=== PATIENT | female | born 1945 | race Caucasian/White ===

== ENCOUNTER 2016-08-30 07:43 | Outpatient (CLI) | payer BC, OTHER ==
[~2016-08-30 07:43] MED LIST: ASPI-605 PO; METO50TA7 PO; VALS160T2 PO
[2016-08-30 09:42] LABS: BASOPHILS % (AUTO) 0.5 % (0.0-2.0); EOSINOPHILS # (AUTO) 0.2 K/uL (0.0-0.7); EOSINOPHILS % (AUTO) 2.1 % (0.0-7.0); HEMATOCRIT 42.3 % (31.2-41.9); HEMOGLOBIN 14.1 g/dL (10.9-14.3); LYMPHOCYTES # (AUTO) 2.8 K/uL (20.0-40.0); LYMPHOCYTES % (AUTO) 34.6 % (20.5-51.5); MEAN CORPUSCULAR HEMOGLOBIN 27.5 uug (24.7-32.8); MEAN CORPUSCULAR HGB CONC 33 g/dL (32.3-35.6); MEAN CORPUSCULAR VOLUME 82.3 fL (75.5-95.3); MONOCYTES # (AUTO) 0.6 K/uL (2.0-10.0); MONOCYTES % (AUTO) 6.9 % (0.0-11.0); NEUTROPHILS # (AUTO) 4.6 K/uL (1.8-8.9); NEUTROPHILS % (AUTO) 55.9 % (38.5-71.5); PLATELET COUNT (AUTO) 194 K/uL (179-408); RED BLOOD CELL COUNT(AUTO) 5.15 MIL/uL (3.63-4.92); WHITE BLOOD COUNT (AUTO) 8.2 K/uL (3.8-11.8)
[2016-08-30 10:04] LABS: BILIRUBIN,TOTAL 0.4 mg/dL (0.2-1.0); CALCIUM 8.8 mg/dL (8.5-10.1); CREATININE 0.6 mg/dL (0.6-1.3); POTASSIUM 4.1 mmol/L (3.5-5.1); TOTAL PROTEIN, SERUM 7.3 g/dL (6.4-8.2)
== END 2016-08-30 23:59 | disposition home or self-care (01) ==
LOC: LAB 07:43
PROVIDERS: ATTEND Internal Medicine Cardiovascular Disease
DX: I10 Essential (primary) hypertension (principal); E11.9 Type 2 diabetes mellitus without complications; E78.5 Hyperlipidemia, unspecified
CPT/HCPCS: 36415; 85025

== ENCOUNTER 2016-09-22 09:16 | Outpatient (CLI) | payer BC, OTHER | END 2016-09-22 23:59 | disposition home or self-care (01) | LOC: US 09:16 | PROVIDERS: ATTEND Internal Medicine Cardiovascular Disease | DX: I70.0 Atherosclerosis of aorta (principal); R06.02 Shortness of breath; R10.11 Right upper quadrant pain | CPT/HCPCS: 71020; 76705 ==

== ENCOUNTER 2017-02-26 07:45 | Outpatient (CLI) | payer BC, OTHER ==
[2017-02-26 09:50] LABS: BILIRUBIN,TOTAL 0.4 mg/dL (0.2-1.0); CREATININE 0.6 mg/dL (0.6-1.3); POTASSIUM 4.1 mmol/L (3.5-5.1); TOTAL PROTEIN, SERUM 7.2 g/dL (6.4-8.2)
[2017-02-26 09:58] LABS: THYROID STIMULATING HORMONE 1.81 mIU/mL (0.358-3.740)
[2017-02-26 10:26] LABS: BASOPHILS # (AUTO) 0.1 K/uL (0.0-8.0); BASOPHILS % (AUTO) 0.7 % (0.0-2.0); EOSINOPHILS # (AUTO) 0.2 K/uL (0.0-0.7); EOSINOPHILS % (AUTO) 2.7 % (0.0-7.0); HEMATOCRIT 41.2 % (37-47); HEMOGLOBIN 13.8 G/DL (12.0-16.0); LYMPHOCYTES % (AUTO) 36.2 % (20.5-51.5); MEAN CORPUSCULAR HGB CONC 34 g/dL (32.0-37.0); MEAN CORPUSCULAR VOLUME 83.8 FL (81.0-99.0); MONOCYTES # (AUTO) 0.7 K/UL (0.1-1.30); MONOCYTES % (AUTO) 7.8 % (0.0-11.0); NEUTROPHILS # (AUTO) 4.4 K/UL (1.8-8.9); NEUTROPHILS % (AUTO) 52.6 % (38.5-71.5); PLATELET COUNT (AUTO) 200 K/UL (150-450); RED BLOOD CELL COUNT(AUTO) 4.92 MIL/UL (4.2-5.4); WHITE BLOOD COUNT (AUTO) 8.4 K/UL (4.0-11.2)
== END 2017-02-26 23:59 | disposition home or self-care (01) ==
LOC: LAB 07:45
PROVIDERS: ATTEND Internal Medicine Cardiovascular Disease
DX: I10 Essential (primary) hypertension (principal); E78.5 Hyperlipidemia, unspecified; R53.83 Other fatigue; E11.40 Type 2 diabetes mellitus with diabetic neuropathy, unspecified
CPT/HCPCS: 36415; 82306; 84443; 85025

== ENCOUNTER 2017-08-23 08:02 | Outpatient (CLI) | payer BC, OTHER ==
[2017-08-23 09:37] LABS: BASOPHILS # (AUTO) 0.1 K/uL (0.0-8.0); BASOPHILS % (AUTO) 0.8 % (0.0-2.0); EOSINOPHILS # (AUTO) 0.2 K/uL (0.0-0.7); HEMATOCRIT 42.3 % (31.2-41.9); HEMOGLOBIN 14.4 g/dL (10.9-14.3); LYMPHOCYTES # (AUTO) 2.9 K/uL (20.0-40.0); LYMPHOCYTES % (AUTO) 34.3 % (20.5-51.5); MEAN CORPUSCULAR HEMOGLOBIN 28.3 uug (24.7-32.8); MEAN CORPUSCULAR HGB CONC 34 g/dL (32.3-35.6); MEAN CORPUSCULAR VOLUME 83.3 fL (75.5-95.3); MONOCYTES # (AUTO) 0.7 K/uL (2.0-10.0); MONOCYTES % (AUTO) 7.8 % (0.0-11.0); NEUTROPHILS # (AUTO) 4.7 K/uL (1.8-8.9); NEUTROPHILS % (AUTO) 55.1 % (38.5-71.5); PLATELET COUNT (AUTO) 176 K/uL (179-408); RED BLOOD CELL COUNT(AUTO) 5.08 MIL/uL (3.63-4.92); WHITE BLOOD COUNT (AUTO) 8.4 K/uL (3.8-11.8)
[2017-08-23 09:47] LABS: *BILIRUBIN,URIN NEGATIVE (NEGATIVE); *BLOOD, URINE Trace-lysed (NEGATIVE); *CLARITY,URINE CLEAR (CLEAR); *COLOR,URINE YELLOW (YELLOW); *KETONES,URINE NEGATIVE (NEGATIVE); *PROTEIN,URINE NEGATIVE (NEGATIVE); *UROBILINOGEN,URINE 0.2 E.U./dl (NORMAL); LEUKOCYTE ESTERASE ,URINE NEGATIVE (NEGATIVE); NITRITE, URINE NEGATIVE (NEGATIVE); PH,URINE 5.5 (5.0-8.0); UGLUCOSE NEGATIVE (NEGATIVE)
[2017-08-23 09:58] LABS: WBC,URINE 0-3 /HPF (0-3)
[2017-08-23 09:59] LABS: BACTERIA,URINE NONE SEEN /HPF (NONE SEEN); SQUAMOUS EPITHELIAL CELL,UR FEW /HPF (NONE SEEN)
[2017-08-23 10:06] LABS: BILIRUBIN,TOTAL 0.3 mg/dL (0.2-1.0); CREATININE 0.6 mg/dL (0.6-1.3); TOTAL PROTEIN, SERUM 7.4 g/dL (6.4-8.2)
[2017-08-23 10:27] LABS: THYROID STIMULATING HORMONE 2.366 mIU/mL (0.358-3.740)
== END 2017-08-23 23:59 | disposition home or self-care (01) ==
LOC: LAB 08:02
PROVIDERS: ATTEND Internal Medicine Cardiovascular Disease
DX: E11.9 Type 2 diabetes mellitus without complications (principal); E78.5 Hyperlipidemia, unspecified; R53.83 Other fatigue
CPT/HCPCS: 36415; 84443; 85025; 87086

== ENCOUNTER 2017-11-27 08:00 | Outpatient (CLI) | payer BC, OTHER ==
[2017-11-27 09:32] LABS: CREATININE 0.7 mg/dL (0.6-1.3)
== END 2017-11-27 23:59 | disposition home or self-care (01) ==
LOC: LAB 08:00
PROVIDERS: ATTEND Internal Medicine Cardiovascular Disease
DX: I10 Essential (primary) hypertension (principal); E11.9 Type 2 diabetes mellitus without complications; E78.5 Hyperlipidemia, unspecified
CPT/HCPCS: 36415

== ENCOUNTER → 2017-11-29 | Outpatient (CLI) | payer BC, OTHER ==
[~2017-11-29] MED LIST changes: +IOHEXOL 300MG/ML 100 ML INFUS..BTL ONE; +IV NORMAL SALINE 100 ML ONE; +SWABABLE VALVE TRANSFER SET EA MC ONE
== END | disposition home or self-care (01) ==
LOC: RAD 08:03
PROVIDERS: ATTEND Internal Medicine Cardiovascular Disease
DX: K76.0 Fatty (change of) liver, not elsewhere classified (principal); I70.0 Atherosclerosis of aorta; I25.10 Atherosclerotic heart disease of native coronary artery without angina pectoris
CPT/HCPCS: J3490; Q9967

== ENCOUNTER 2018-05-27 07:43 | Outpatient (CLI) | payer BC, OTHER ==
[~2018-05-27 07:43] MED LIST changes: -IOHEXOL 300MG/ML 100 ML INFUS..BTL ONE; -IV NORMAL SALINE 100 ML ONE; -SWABABLE VALVE TRANSFER SET EA MC ONE
[2018-05-27 09:10] LABS: BILIRUBIN,TOTAL 0.4 mg/dL (0.2-1.0); CREATININE 0.6 mg/dL (0.6-1.3); POTASSIUM 4.3 mmol/L (3.5-5.1); TOTAL PROTEIN, SERUM 7.1 g/dL (6.4-8.2)
[2018-05-27 09:34] LABS: THYROID STIMULATING HORMONE 2.04 mIU/mL (0.358-3.740)
[2018-05-27 09:47] LABS: BASOPHILS # (AUTO) 0.1 K/uL (0.0-8.0); BASOPHILS % (AUTO) 0.8 % (0.0-2.0); EOSINOPHILS # (AUTO) 0.1 K/uL (0.0-0.7); HEMATOCRIT 39.1 % (31.2-41.9); HEMOGLOBIN 13.5 g/dL (10.9-14.3); LYMPHOCYTES # (AUTO) 2.5 K/uL (20.0-40.0); LYMPHOCYTES % (AUTO) 34.2 % (20.5-51.5); MEAN CORPUSCULAR HGB CONC 35 g/dL (32.3-35.6); MEAN CORPUSCULAR VOLUME 84.2 fL (75.5-95.3); MONOCYTES # (AUTO) 0.6 K/uL (2.0-10.0); MONOCYTES % (AUTO) 8.2 % (0.0-11.0); NEUTROPHILS % (AUTO) 54.8 % (38.5-71.5); PLATELET COUNT (AUTO) 190 K/uL (179-408); RED BLOOD CELL COUNT(AUTO) 4.64 MIL/uL (3.63-4.92); WHITE BLOOD COUNT (AUTO) 7.3 K/uL (3.8-11.8)
[2018-05-30 14:06] LABS: *VITAMIN D 25-OH, D2 1.2 ng/mL (.)
== END 2018-05-27 23:59 | disposition home or self-care (01) ==
LOC: LAB 07:43
PROVIDERS: ATTEND Internal Medicine Cardiovascular Disease
DX: I10 Essential (primary) hypertension (principal); E78.5 Hyperlipidemia, unspecified; R53.83 Other fatigue
CPT/HCPCS: 36415; 84443; 85025

== ENCOUNTER 2018-08-17 22:18 | Inpatient (IN) | payer BC, OTHER, MEDICARE ==
[~2018-08-17] VITALS: Ht 157.5 cm; Wt 81.6 kg
--- NOTE | 2018-08-17 22:30 | NUR ---
Patient ambulatd with stable gait. AAOx4. Speech clear, speaks in complete sentences. No neuro deficits. Patient came for c/o palpitations x 2 hours. Respiratory even and unlabored, no cough no sob. No GI/ distress. Patient in bed at lowest position, side rails upx2, call light within reach. Fall precautions implemented per protocol.
[2018-08-17 22:44] LABS: BASOPHILS # (AUTO) 0.1 K/uL (0.0-8.0); EOSINOPHILS # (AUTO) 0.1 K/uL (0.0-0.7); EOSINOPHILS % (AUTO) 1.3 % (0.0-7.0); HEMATOCRIT 40.1 % (31.2-41.9); HEMOGLOBIN 13.4 g/dL (10.9-14.3); LYMPHOCYTES # (AUTO) 3.4 K/uL (20.0-40.0); LYMPHOCYTES % (AUTO) 31.7 % (20.5-51.5); MEAN CORPUSCULAR HEMOGLOBIN 27.4 uug (24.7-32.8); MEAN CORPUSCULAR HGB CONC 33 g/dL (32.3-35.6); MEAN CORPUSCULAR VOLUME 82.3 fL (75.5-95.3); MONOCYTES # (AUTO) 0.8 K/uL (2.0-10.0); MONOCYTES % (AUTO) 7.5 % (0.0-11.0); NEUTROPHILS # (AUTO) 6.2 K/uL (1.8-8.9); NEUTROPHILS % (AUTO) 58.5 % (38.5-71.5); PLATELET COUNT (AUTO) 187 K/uL (179-408); RED BLOOD CELL COUNT(AUTO) 4.87 MIL/uL (3.63-4.92); WHITE BLOOD COUNT (AUTO) 10.6 K/uL (3.8-11.8)
--- NOTE | 2018-08-17 22:48 | NUR ---
Patient had a asystole segment on heart monitor, at 2248. ERMD notified and made aware.
--- NOTE | 2018-08-17 22:58 | NUR ---
AMANDA speaking to Dr. Padron (CARDIOLOGY).
[2018-08-17 23:00] LABS: ALANINE AMINOTRANSFERASE 45 U/L (14-59); ALKALINE PHOSPHATASE 50 U/L (50-136); ASPARTATE AMINOTRANSFERASE 23 U/L (15-37); BILIRUBIN,DIRECT 0.1 mg/dL (0.0-0.2); BILIRUBIN,TOTAL 0.3 mg/dL (0.2-1.0); CARBON DIOXIDE 26 mmol/L (21-32); CHLORIDE 101 mmol/L (98-107); CREATININE 0.6 mg/dL (0.6-1.3); GLUCOSE 210 mg/dL (74-106); POTASSIUM 3.4 mmol/L (3.5-5.1); TOTAL PROTEIN, SERUM 7.2 g/dL (6.4-8.2); UREA NITROGEN, BLOOD 21 mg/dL (7-18)
--- NOTE | 2018-08-17 23:16 | NUR ---
Dr. Askew at bedside.
[2018-08-17] MEDS ORDERED: HEPARIN/D5W DRIP 500 ML IV PRN (23:30)
[2018-08-17 23:51] LABS: THYROID STIMULATING HORMONE 2.558 mIU/mL (0.358-3.740)
[2018-08-17] MEDS ORDERED: HEPARIN/D5W DRIP 500 ML ONE (23:55)
[2018-08-17] MEDS ORDERED: IV NS 1000 ML 1,000 ML IV PRN (23:57)
[2018-08-18] VITALS (12 sets, daily range): BP systolic 98–154; BP diastolic 37–71
[2018-08-18] MEDS ORDERED: HYDROCODONE/APAP 5-325MG TABLET PO PRN
[2018-08-18] MEDS ORDERED: ONDANSETRON 4 MG/2 ML VIAL IV PRN
[2018-08-18] MEDS ORDERED: HEPARIN/D5W DRIP 500 ML IV PRN
[2018-08-18] MEDS ORDERED: MAGNESIUM HYDROXIDE 30 ML LIQUID UDC PO PRN
[2018-08-18] MEDS ORDERED: Z GUARD REMEDY PASTE 57 GM TUBE TOP PRN
[2018-08-18] MEDS ORDERED: ACETAMINOPHEN 325 MG TABLET PO PRN
[2018-08-18] MEDS ORDERED: HEPARIN SODIUM,PORCINE 5,000 UNITS/ML VIAL ONE (00:09)
[2018-08-18] MEDS ORDERED: HEPARIN SODIUM,PORCINE/PF 100 UNIT/ML, 5ML SYR ONE (00:09)
--- NOTE | 2018-08-18 01:47 | NUR ---
patient transfered to CCU in stable condition.
--- NOTE | 2018-08-18 01:48 | NUR ---
ADMITTED FROM ER VIA [facility] W/ ADMITTING DX OF AFIB W/ ASYSTOLE. PT IS ALERT & ORIENTED X3. DENIES CHEST PAIN. ON HEPARIN DRIP @ 1200 UNITS/HR STARTED IN ER . LAC. C-SCOPE AFIB CONTROLLED, BP STABLE. NOT IN ANY DISTRESS.
--- NOTE | 2018-08-18 06:00 | NUR ---
SLEPT WELL. NOT IN ANY DISTRESS..
[2018-08-18 06:12] LABS: BASOPHILS # (AUTO) 0.1 K/uL (0.0-8.0); BASOPHILS % (AUTO) 0.7 % (0.0-2.0); EOSINOPHILS # (AUTO) 0.2 K/uL (0.0-0.7); EOSINOPHILS % (AUTO) 2.1 % (0.0-7.0); HEMATOCRIT 40.2 % (31.2-41.9); HEMOGLOBIN 13.3 g/dL (10.9-14.3); LYMPHOCYTES # (AUTO) 4.5 K/uL (20.0-40.0); LYMPHOCYTES % (AUTO) 44.4 % (20.5-51.5); MEAN CORPUSCULAR HEMOGLOBIN 27.2 uug (24.7-32.8); MEAN CORPUSCULAR HGB CONC 33 g/dL (32.3-35.6); MEAN CORPUSCULAR VOLUME 82.1 fL (75.5-95.3); MONOCYTES # (AUTO) 0.7 K/uL (2.0-10.0); MONOCYTES % (AUTO) 6.6 % (0.0-11.0); NEUTROPHILS # (AUTO) 4.7 K/uL (1.8-8.9); NEUTROPHILS % (AUTO) 46.2 % (38.5-71.5); PLATELET COUNT (AUTO) 202 K/uL (179-408); RED BLOOD CELL COUNT(AUTO) 4.89 MIL/uL (3.63-4.92); WHITE BLOOD COUNT (AUTO) 10.1 K/uL (3.8-11.8)
--- NOTE | 2018-08-18 06:39 | NUR ---
CONVERTED TO SR W/ PACS, EKG DONE.
[2018-08-18 06:52] LABS: ALANINE AMINOTRANSFERASE 42 U/L (14-59); ALKALINE PHOSPHATASE 42 U/L (50-136); ASPARTATE AMINOTRANSFERASE 18 U/L (15-37); BILIRUBIN,TOTAL 0.4 mg/dL (0.2-1.0); CARBON DIOXIDE 25 mmol/L (21-32); CHLORIDE 103 mmol/L (98-107); CHOLESTEROL 203 mg/dL (<200); CREATININE 0.6 mg/dL (0.6-1.3); GLUCOSE 134 mg/dL (74-106); HDL CHOLESTEROL 48 mg/dL (40-60); MAGNESIUM 1.9 mg/dL (1.8-2.4); PHOSPHOROUS 4.1 mg/dL (2.5-4.9); POTASSIUM 3.7 mmol/L (3.5-5.1); TOTAL PROTEIN, SERUM 7.1 g/dL (6.4-8.2); TRIGLYCERIDES 205 MG/DL (30-150); UREA NITROGEN, BLOOD 15 mg/dL (7-18)
--- NOTE | 2018-08-18 08:00 | NUR ---
patient been examine by attending physician Dr. Askew who dcd heparin drip at this time. and down-graded pt. to telemetry status. histology supervisor notified.
[2018-08-18] MEDS ORDERED: METFORMIN HCL 500 MG TABLET PO SCH (08:30)
[2018-08-18] MEDS ORDERED: ATORVASTATIN 40 MG TABLET PO SCH (08:45)
--- NOTE | 2018-08-18 09:00 | NUR ---
Patient seen by Dr. Padron cardiology services.
[2018-08-18] MEDS ORDERED: APIXABAN 5 MG TABLET PO SCH (09:30)
--- NOTE | 2018-08-18 09:45 | NUR ---
Patient taken up to room 325 via wheelchair. PT. AAOX4. vitals stable no c/of pain
--- NOTE | 2018-08-18 09:45 | NUR ---
RECEIVED PATIENT FROM CCU BY W/CHAIR 73 YEARS OLD FEMALE TO ROOM 225 WITH DX OF UNCONTROLLED AFIB.PATIENT IS ALERT AND ORIENTED DENIES PAIN OR DISCOMFORTS ATR THIS TIME ON ROOM AIR WITH NO SHORTNESS OF BREATH AT THIS TIME.LEFT AC WITH HEPLOCK INTACT ORIENTED TO ROOM AND FACILITY PROTOCOL MADE COMFORTABLE WILL CONTINUE TO OBSERVE.
--- NOTE | 2018-08-18 12:21 | NUR ---
ECHO COMPLETED ORDERED WITH PATIENT DENIES PAIN OR DISCOMFORTS AWAITING FOR THE PLANNING ANALYST TO SEE PATIENT
--- NOTE | 2018-08-18 13:30 | NUR ---
CALLED DR SANTIAGO SPOKE WITH HIM RE PATIENT IS ANXIOUS TO GO HOME THE SAILBOAT CAPTAIN WAS HERE AND WILL SEE PATIENT AND HE STATED IT WILL BE OKAY FOR PATIENT TO BE DISCHARGED WILL PLACE AN ORDER FOR DISCHARGE IN A WHILE AND WILL LET MARY JANE CALL IN MEDS TO THE PATIENTS PHARMACY PATIENT AND HER DAUGHTER HERE AND AWARE.
[2018-08-18] MEDS ORDERED: VALSARTAN 160 MG TABLET PO SCH (13:45)
--- NOTE | 2018-08-18 14:20 | NUR ---
PATIENT REFUSED DIOVAN STATED STOPPED TAKING IT A WHILWE AGO.
--- NOTE | 2018-08-18 15:30 | NUR ---
PATIENT DISCHARGED HOME PICKED UP BY HER DAUGHTER NUPUR WITH DISCHARGE INSTRUCTIONS AND PRESCRIPTION PROVIDED BY DR REESE IN SATISFACTORY CONDITION WITH ALL OF HER PERSONAL BELONGINGS AND PATIENT WAS INSTRUCTED TO CONTINUE MEDICATIONS ORDERED AND FOLLOW UP WITH HER PRIMARY/SOFT CRAB SHEDDER WITHIN ONE WEEK AND SHE EXPRESSED UNDERSTANDING.
== END 2018-08-18 15:30 | disposition home or self-care (01) | DRG 309 ==
LOC: ER 22:19 → OBSER 08-18 01:10 → CCU 08-18 01:18 → TELE3 08-18 09:44
PROVIDERS: ADMIT Internal Medicine; ATTEND Internal Medicine
DX: I48.91 Unspecified atrial fibrillation (principal); D68.59 Other primary thrombophilia; E78.5 Hyperlipidemia, unspecified; E11.9 Type 2 diabetes mellitus without complications; I10 Essential (primary) hypertension; I35.0 Nonrheumatic aortic (valve) stenosis; I46.9 Cardiac arrest, cause unspecified; Z79.82 Long term (current) use of aspirin; Z79.899 Other long term (current) drug therapy; Z82.49 Family history of ischemic heart disease and other diseases of the circulatory system; Z87.891 Personal history of nicotine dependence; Z90.710 Acquired absence of both cervix and uterus
CPT/HCPCS: 36415; 70030-TC; 71045; 83735; 84100; 84443; 85025; 85730; 93005; 93307; A4663; G0378; J1642; J1644; J7030; J7060

== ENCOUNTER 2018-09-19 07:35 | Emergency (ER) | payer BC, MEDICARE, OTHER ==
[~2018-09-19] VITALS: Ht 157.5 cm; Wt 74.8 kg
--- NOTE | 2018-09-19 08:08 | NUR ---
PATIENT SLIPPED AND FELL TODAY AND HURT HER ANKLE AND KNEE. DENIES HITTING HER HEAD. XRAYS COMPLETED.
[2018-09-19] MEDS ORDERED: NEOMY/BACITRA/POLYMYXIN B OINT UD PACKET TP ONE ×2 (08:28→08:30)
--- NOTE | 2018-09-19 08:30 | NUR ---
PATIENT HAS TWO SMALL ABRASIONS ON BOTH KNEES. TRIPLE ABX OINTMENT PLACED ND STERILE BANDAID PLACED. DC AND FOLLOW UP INSTRUCTIONS GIVEN AND EXPLAINED TO PATIENT.
== END 2018-09-19 08:38 | disposition home or self-care (01) ==
LOC: ER 07:35
DX: S93.401A Sprain of unspecified ligament of right ankle, initial encounter (principal); E78.5 Hyperlipidemia, unspecified; I48.91 Unspecified atrial fibrillation; Z79.82 Long term (current) use of aspirin; Z79.899 Other long term (current) drug therapy; W01.0XXA Fall on same level from slipping, tripping and stumbling without subsequent striking against object, initial encounter; Y93.89 Activity, other specified; Y92.89 Other specified places as the place of occurrence of the external cause; Y99.8 Other external cause status
CPT/HCPCS: 73610; A4663

== ENCOUNTER 2018-10-22 07:40 | Outpatient (CLI) | payer BC, OTHER ==
[2018-10-22 09:32] LABS: ALANINE AMINOTRANSFERASE 33 U/L (14-59); ALKALINE PHOSPHATASE 35 U/L (50-136); ASPARTATE AMINOTRANSFERASE 27 U/L (15-37); BILIRUBIN,TOTAL 0.5 mg/dL (0.2-1.0); CARBON DIOXIDE 28 mmol/L (21-32); CHLORIDE 104 mmol/L (98-107); CHOLESTEROL 128 mg/dL (<200); CREATININE 0.8 mg/dL (0.6-1.3); GLUCOSE 123 mg/dL (74-106); HDL CHOLESTEROL 46 mg/dL (40-60); POTASSIUM 3.7 mmol/L (3.5-5.1); TOTAL PROTEIN, SERUM 7.5 g/dL (6.4-8.2); TRIGLYCERIDES 116 MG/DL (30-150); UREA NITROGEN, BLOOD 17 mg/dL (7-18)
[2018-10-22 13:43] LABS: *BILIRUBIN,URIN 1+ (NEGATIVE); *BLOOD, URINE TRACE (NEGATIVE); *KETONES,URINE TRACE (NEGATIVE); *UROBILINOGEN,URINE 0.2 E.U./dl (NORMAL); LEUKOCYTE ESTERASE ,URINE 2+ (NEGATIVE); NITRITE, URINE NEGATIVE (NEGATIVE); PH,URINE 5.5 (5.0-8.0); UGLUCOSE NEGATIVE (NEGATIVE)
[2018-10-22 14:41] LABS: *CLARITY,URINE SLIGHTLY CLOUDY (CLEAR); *COLOR,URINE DARK YELLOW (YELLOW)
[2018-10-22 14:42] LABS: BACTERIA,URINE FEW /HPF (NONE SEEN); SQUAMOUS EPITHELIAL CELL,UR MODERATE /HPF (NONE SEEN); WBC,URINE 20-50 /HPF (0-3)
[2018-10-22 14:43] LABS: MUCUS,URINE MODERATE /LPF (0-FEW); URINE AMORPHOUS URATE MODERATE /HPF
== END 2018-10-22 23:59 | disposition home or self-care (01) ==
LOC: LAB 07:40
PROVIDERS: ATTEND Internal Medicine Cardiovascular Disease
DX: E11.9 Type 2 diabetes mellitus without complications (principal); I10 Essential (primary) hypertension; E78.5 Hyperlipidemia, unspecified
CPT/HCPCS: 36415; 87086

== ENCOUNTER 2018-12-15 17:09 | Emergency (ER) | payer BC, OTHER ==
[~2018-12-15] VITALS: Ht 157.5 cm; Wt 74.8 kg
--- NOTE | 2018-12-15 17:26 | NUR ---
Dr. Heredia at the bedside for MSE.
[2018-12-15] MEDS ORDERED: APIX5TAB4 PO (17:27)
[2018-12-15] MEDS ORDERED: LOSA50TA39 PO (17:27)
[2018-12-15] MEDS ORDERED: SIMV20TA6 PO (17:27)
[2018-12-15] MEDS ORDERED: AMLO5TAB9 PO (17:27)
[2018-12-15] MEDS ORDERED: IV NORMAL SALINE 1000 ML BAG IV ONE (17:30)
[2018-12-15] MEDS ORDERED: ONDANSETRON 4 MG/2 ML VIAL IV ONE (17:30)
[2018-12-15] MEDS ORDERED: ONDANSETRON 4 MG/2 ML VIAL ONE (17:33)
[2018-12-15 17:46] LABS: BASOPHILS % (AUTO) 0.2 % (0.0-2.0); EOSINOPHILS # (AUTO) 0.2 K/uL (0.0-0.7); EOSINOPHILS % (AUTO) 1.2 % (0.0-7.0); HEMATOCRIT 40.6 % (31.2-41.9); HEMOGLOBIN 13.5 g/dL (10.9-14.3); LYMPHOCYTES # (AUTO) 0.8 K/uL (20.0-40.0); LYMPHOCYTES % (AUTO) 5.8 % (20.5-51.5); MEAN CORPUSCULAR HEMOGLOBIN 26.7 uug (24.7-32.8); MEAN CORPUSCULAR HGB CONC 33 g/dL (32.3-35.6); MEAN CORPUSCULAR VOLUME 80.3 fL (75.5-95.3); MONOCYTES # (AUTO) 0.5 K/uL (2.0-10.0); MONOCYTES % (AUTO) 3.8 % (0.0-11.0); NEUTROPHILS # (AUTO) 11.6 K/uL (1.8-8.9); PLATELET COUNT (AUTO) 189 K/uL (179-408); RED BLOOD CELL COUNT(AUTO) 5.06 MIL/uL (3.63-4.92)
[2018-12-15 17:49] LABS: CARBON DIOXIDE 23 mmol/L (21-32); CHLORIDE 105 mmol/L (98-107); CREATININE 0.7 mg/dL (0.6-1.3); GLUCOSE 178 mg/dL (74-106); POTASSIUM 3.6 mmol/L (3.5-5.1); UREA NITROGEN, BLOOD 19 mg/dL (7-18)
[2018-12-15 17:56] LABS: ALANINE AMINOTRANSFERASE 28 U/L (14-59); ALKALINE PHOSPHATASE 40 U/L (50-136); ASPARTATE AMINOTRANSFERASE 16 U/L (15-37); BILIRUBIN,DIRECT 0.1 mg/dL (0.0-0.2); BILIRUBIN,TOTAL 0.6 mg/dL (0.2-1.0); LIPASE 82 U/L (73-393); TOTAL PROTEIN, SERUM 7.6 g/dL (6.4-8.2)
--- NOTE | 2018-12-15 18:40 | NUR ---
Patient discharged to home in stable conditon. Written and verbal after care instructions given. Patient verbalizes understanding of instructions.
== END 2018-12-15 18:40 | disposition home or self-care (01) ==
LOC: ER 17:14
DX: R11.10 Vomiting, unspecified (principal); R19.7 Diarrhea, unspecified; T36.0X5A Adverse effect of penicillins, initial encounter; I48.91 Unspecified atrial fibrillation; E11.9 Type 2 diabetes mellitus without complications; Z79.82 Long term (current) use of aspirin; Z79.899 Other long term (current) drug therapy; Y92.89 Other specified places as the place of occurrence of the external cause
CPT/HCPCS: 36415; 80048; 80076; 83690; 85025; 93005; 96361; 96374; 99284; J2405; A4663; J7030

== ENCOUNTER 2018-12-24 07:42 | Outpatient (CLI) | payer BC, OTHER ==
[~2018-12-24 07:42] MED LIST changes: +AMLO5TAB9 PO; +APIX5TAB4 PO; -ASPI-605 PO; +LOSA50TA39 PO; +SIMV20TA6 PO; -VALS160T2 PO
[2018-12-24 08:53] LABS: BASOPHILS # (AUTO) 0.1 K/uL (0.0-8.0); BASOPHILS % (AUTO) 0.7 % (0.0-2.0); EOSINOPHILS # (AUTO) 0.4 K/uL (0.0-0.7); EOSINOPHILS % (AUTO) 5.8 % (0.0-7.0); HEMATOCRIT 37.3 % (31.2-41.9); HEMOGLOBIN 12.6 g/dL (10.9-14.3); LYMPHOCYTES # (AUTO) 2.4 K/uL (20.0-40.0); LYMPHOCYTES % (AUTO) 32.6 % (20.5-51.5); MEAN CORPUSCULAR HEMOGLOBIN 27.4 uug (24.7-32.8); MEAN CORPUSCULAR HGB CONC 34 g/dL (32.3-35.6); MONOCYTES # (AUTO) 0.5 K/uL (2.0-10.0); MONOCYTES % (AUTO) 6.7 % (0.0-11.0); NEUTROPHILS % (AUTO) 54.2 % (38.5-71.5); PLATELET COUNT (AUTO) 196 K/uL (179-408); RED BLOOD CELL COUNT(AUTO) 4.61 MIL/uL (3.63-4.92); WHITE BLOOD COUNT (AUTO) 7.4 K/uL (3.8-11.8)
[2018-12-24 09:02] LABS: ALANINE AMINOTRANSFERASE 24 U/L (14-59); ALKALINE PHOSPHATASE 36 U/L (50-136); ASPARTATE AMINOTRANSFERASE 13 U/L (15-37); BILIRUBIN,TOTAL 0.5 mg/dL (0.2-1.0); CARBON DIOXIDE 26 mmol/L (21-32); CHLORIDE 106 mmol/L (98-107); CREATININE 0.5 mg/dL (0.6-1.3); GLUCOSE 132 mg/dL (74-106); POTASSIUM 3.7 mmol/L (3.5-5.1); TOTAL PROTEIN, SERUM 7.2 g/dL (6.4-8.2); UREA NITROGEN, BLOOD 14 mg/dL (7-18)
== END 2018-12-24 23:59 | disposition home or self-care (01) ==
LOC: LAB 07:42
PROVIDERS: ATTEND Internal Medicine Cardiovascular Disease
DX: Z01.818 Encounter for other preprocedural examination (principal); I48.91 Unspecified atrial fibrillation; I10 Essential (primary) hypertension; E11.9 Type 2 diabetes mellitus without complications; M19.90 Unspecified osteoarthritis, unspecified site
CPT/HCPCS: 36415; 71046; 85025; 85730

== ENCOUNTER 2018-12-27 10:59 | Day surgery (SDC) | payer BC, OTHER ==
[2018-12-27] MEDS ORDERED: LIDOCAINE HCL 1% 20 ML VIAL ONE (12:23)
== END 2018-12-27 13:10 | disposition home or self-care (01) ==
LOC: DS 10:59
PROVIDERS: ATTEND Specialist
DX: I49.5 Sick sinus syndrome (principal); I48.0 Paroxysmal atrial fibrillation; I11.9 Hypertensive heart disease without heart failure; E11.9 Type 2 diabetes mellitus without complications; E78.5 Hyperlipidemia, unspecified; M19.90 Unspecified osteoarthritis, unspecified site; R55 Syncope and collapse; F15.90 Other stimulant use, unspecified, uncomplicated; Z79.84 Long term (current) use of oral hypoglycemic drugs; Z79.899 Other long term (current) drug therapy; Z90.710 Acquired absence of both cervix and uterus; Z98.890 Other specified postprocedural states; Z88.8 Allergy status to other drugs, medicaments and biological substances
CPT/HCPCS: 33285; C1764; J3490; A4663

== ENCOUNTER 2019-02-11 07:45 | Outpatient (CLI) | payer BC, OTHER ==
[2019-02-11 08:50] LABS: BASOPHILS % (AUTO) 0.6 % (0.0-2.0); EOSINOPHILS # (AUTO) 0.3 K/uL (0.0-0.7); EOSINOPHILS % (AUTO) 3.6 % (0.0-7.0); HEMATOCRIT 40.9 % (31.2-41.9); HEMOGLOBIN 13.5 g/dL (10.9-14.3); LYMPHOCYTES # (AUTO) 2.4 K/uL (20.0-40.0); LYMPHOCYTES % (AUTO) 31.3 % (20.5-51.5); MEAN CORPUSCULAR HEMOGLOBIN 27.5 uug (24.7-32.8); MEAN CORPUSCULAR HGB CONC 33 g/dL (32.3-35.6); MEAN CORPUSCULAR VOLUME 83.2 fL (75.5-95.3); MONOCYTES # (AUTO) 0.6 K/uL (2.0-10.0); MONOCYTES % (AUTO) 7.7 % (0.0-11.0); NEUTROPHILS # (AUTO) 4.3 K/uL (1.8-8.9); NEUTROPHILS % (AUTO) 56.8 % (38.5-71.5); PLATELET COUNT (AUTO) 189 K/uL (179-408); RED BLOOD CELL COUNT(AUTO) 4.92 MIL/uL (3.63-4.92); WHITE BLOOD COUNT (AUTO) 7.6 K/uL (3.8-11.8)
[2019-02-11 08:56] LABS: ALANINE AMINOTRANSFERASE 32 U/L (14-59); ALKALINE PHOSPHATASE 41 U/L (50-136); ASPARTATE AMINOTRANSFERASE 23 U/L (15-37); BILIRUBIN,TOTAL 0.3 mg/dL (0.2-1.0); CARBON DIOXIDE 26 mmol/L (21-32); CHLORIDE 104 mmol/L (98-107); CREATININE 0.6 mg/dL (0.6-1.3); GLUCOSE 139 mg/dL (74-106); POTASSIUM 3.7 mmol/L (3.5-5.1); TOTAL PROTEIN, SERUM 7.6 g/dL (6.4-8.2); UREA NITROGEN, BLOOD 15 mg/dL (7-18)
== END 2019-02-11 23:59 | disposition home or self-care (01) ==
LOC: LAB 07:45
PROVIDERS: ATTEND Specialist
DX: I49.5 Sick sinus syndrome (principal); I48.91 Unspecified atrial fibrillation; M19.90 Unspecified osteoarthritis, unspecified site; E11.9 Type 2 diabetes mellitus without complications; Z90.710 Acquired absence of both cervix and uterus
CPT/HCPCS: 36415; 85025; 85610

== ENCOUNTER 2019-02-14 12:35 | Day surgery (SDC) | payer BC, OTHER ==
[2019-02-14] MEDS ORDERED: FENTANYL CITRATE 100 MCG/2 ML AMPUL IM ONE (12:36)
[2019-02-14] MEDS ORDERED: VECURONIUM BROMIDE 10 MG VIAL IV ONE (12:36)
[2019-02-14] MEDS ORDERED: LIDOCAINE HCL-MPF 1% 5 ML VIAL IJ ONE (12:36)
[2019-02-14] MEDS ORDERED: IV NORMAL SALINE 1000 ML BAG IV ONE (12:36)
[2019-02-14] MEDS ORDERED: ONDANSETRON 4 MG/2 ML VIAL IV ONE (12:36)
[2019-02-14] MEDS ORDERED: PROPOFOL 200 MG/20 ML BOTTLE IV ONE (12:36)
[2019-02-14] MEDS ORDERED: SEVOFLURANE 250 ML BOTTLE IH ONE (12:36)
[2019-02-14 13:22] LABS: *BLOOD, URINE NEGATIVE (NEGATIVE); *CLARITY,URINE HAZY (CLEAR); *KETONES,URINE NEGATIVE (NEGATIVE); *UROBILINOGEN,URINE 0.2 E.U./dl (NORMAL); LEUKOCYTE ESTERASE ,URINE 1+ (NEGATIVE); NITRITE, URINE NEGATIVE (NEGATIVE); PH,URINE 5.5 (5.0-8.0); UGLUCOSE NEGATIVE (NEGATIVE)
[2019-02-14 13:23] LABS: *COLOR,URINE DARK YELLOW (YELLOW)
[2019-02-14 13:24] LABS: *BILIRUBIN,URIN 1+ (NEGATIVE)
[2019-02-14] MEDS ORDERED: LIDOCAINE HCL 1% 20 ML VIAL ONE (13:26)
[2019-02-14] MEDS ORDERED: BACITRACIN 50,000 UNITS VIAL ONE (13:27)
[2019-02-14] MEDS ORDERED: IOHEXOL 300MG/ML 50 ML VIAL ONE (13:27)
[2019-02-14 13:39] LABS: BACTERIA,URINE NONE SEEN /HPF (NONE SEEN); RBC,URINE 0-3 /HPF (0-3); SQUAMOUS EPITHELIAL CELL,UR FEW /HPF (NONE SEEN)
[2019-02-14 13:40] LABS: CALCIUM OXALATE CRYSTALS,UR MANY /HPF (NONE SEEN); MUCUS,URINE MODERATE /LPF (0-FEW)
[2019-02-14] MEDS ORDERED: FENTANYL CITRATE 100 MCG/2 ML AMPUL ONE ×3 (14:16→17:22)
[2019-02-14] MEDS ORDERED: ONDANSETRON 4 MG/2 ML VIAL ONE (16:19)
[2019-02-14] MEDS ORDERED: METOCLOPRAMIDE HCL 10 MG/2 ML VIAL ONE (17:44)
== END 2019-02-14 19:02 | disposition home or self-care (01) ==
LOC: DS 12:35
PROVIDERS: ATTEND Specialist
DX: I49.5 Sick sinus syndrome (principal); I10 Essential (primary) hypertension; M19.90 Unspecified osteoarthritis, unspecified site; E78.5 Hyperlipidemia, unspecified; E11.42 Type 2 diabetes mellitus with diabetic polyneuropathy; I11.9 Hypertensive heart disease without heart failure; I48.0 Paroxysmal atrial fibrillation; I70.0 Atherosclerosis of aorta; F15.90 Other stimulant use, unspecified, uncomplicated; Z98.890 Other specified postprocedural states; Z90.710 Acquired absence of both cervix and uterus; Z95.818 Presence of other cardiac implants and grafts; Z88.8 Allergy status to other drugs, medicaments and biological substances
CPT/HCPCS: 33208; 33286; 71045; 81000; 81001; 82962; 87086; C1785; C1898 ×2; J2405 ×2; J2765; J3010 ×4; J3490 ×4; Q9967; A4663; C1769; J7030

== ENCOUNTER 2020-04-22 13:08 | Emergency (ER) | payer MEDICARE, BC ==
[~2020-04-22] VITALS: Ht 157.5 cm; Wt 72.6 kg
[~2020-04-22 13:08] MED LIST changes: +AMLO-212 PO; -AMLO5TAB9 PO; +SIMV-46 PO; -SIMV20TA6 PO
--- NOTE | 2020-04-22 13:58 | NUR ---
PT D/C BY WITH VERBAL ACI.
== END 2020-04-22 13:58 | disposition home or self-care (01) ==
LOC: ER 13:08
DX: U07.1 COVID-19 (principal); I48.91 Unspecified atrial fibrillation; Z79.01 Long term (current) use of anticoagulants; E11.9 Type 2 diabetes mellitus without complications; Z79.899 Other long term (current) drug therapy
CPT/HCPCS: 87426; 99283; U0003; A4663